=== PATIENT | male | born 1985 | race Caucasian/White ===

== ENCOUNTER 2016-06-19 21:48 | Inpatient (IN) | payer OTHER ==
[~2016-06-19] VITALS: Ht 177.8 cm; Wt 111.1 kg
--- NOTE | 2016-06-19 22:30 | NUR ---
To bed 4 a 30 yo male bibself with c/o "I cut myself with tape dispenser last sunday on this left finger, now it looks swollen." Noted left finger, knuckle and surrouding area red, swollen and patient reports pain with movement. No fever. Breathing even and unlabored. Comfort measures initiated. Awaiting for er md gaines.
--- NOTE | 2016-06-19 22:35 | NUR ---
Dr Lester at bedside.
[2016-06-19] MEDS ORDERED: VANCOMYCIN 1 GM VIAL ONE (22:43)
[2016-06-19] MEDS ORDERED: IV SET PRIMARY PUMP SET 1 EA INFUS.SET MC ONE (22:43)
[2016-06-19] MEDS ORDERED: IV D5W 250 ML IV ONE (22:43)
--- NOTE | 2016-06-19 22:50 | NUR ---
started a saline lock on the right ac g18, blood drawn and sent to lab,.
[2016-06-19] MEDS ORDERED: ACETAMINOPHEN ES 500 MG TABLET ONE (22:59)
[2016-06-19] MEDS ORDERED: ACETAMINOPHEN 325 MG TABLET PO ONE (23:00)
[2016-06-19] MEDS ORDERED: VANCOMYCIN 1 GM in IV D5W 250 ML IV ONE (23:00)
[2016-06-19 23:03] LABS: BASOPHILS % (AUTO) 0.3 % (0.0-2.0); EOSINOPHILS % (AUTO) 0.4 % (0.0-6.0); HEMATOCRIT 46 % (39-51); HEMOGLOBIN 15.7 g/dL (13.5-17.5); LYMPHOCYTES % (AUTO) 7.7 % (20.0-44.0); MEAN CORPUSCULAR HEMOGLOBIN 31 PG (26.0-33.0); MEAN CORPUSCULAR HGB CONC 35 g/dl (31.0-36.0); MEAN CORPUSCULAR VOLUME 89 fL (80-96); MONOCYTES # (AUTO) 0.7 /CMM (0.1-1.30); MONOCYTES % (AUTO) 5.6 % (2.0-12.0); NEUTROPHILS # (AUTO) 10.9 /CMM (1.8-8.9); PLATELET COUNT (AUTO) 183 /CMM (150-450); RDW COEFFICIENT OF VARIATION 13.3 (11.5-15.0); RED BLOOD CELL COUNT(AUTO) 5.15 MIL/uL (4.5-6.0); WHITE BLOOD COUNT (AUTO) 12.7 K/uL (4.3-11.0)
--- NOTE | 2016-06-19 23:03 | NUR ---
PT ASSIGNED RM 202
[2016-06-19 23:15] LABS: CALCIUM, SERUM 9.4 mg/dL (8.5-10.1); CREATININE 1.2 mg/dL (0.6-1.3); POTASSIUM 3.8 mmol/L (3.5-5.1)
--- NOTE | 2016-06-19 23:21 | NUR ---
Report given to Tressa MCINTYRE for admission agnes.
[2016-06-19 23:24] LABS: LACTIC ACID 1.1 mmol/L (0.4-2.0)
--- NOTE | 2016-06-19 23:48 | NUR ---
transported to ms room 202, no incident noted. No further complaints.
[2016-06-20] VITALS: BP 110/67
[2016-06-20] MEDS ORDERED: ACETAMINOPHEN 325 MG TABLET PO PRN (00:30)
[2016-06-20] MEDS ORDERED: ONDANSETRON HCL/PF 4 MG/2 ML VIAL IV PRN (00:30)
--- NOTE | 2016-06-20 00:30 | NUR ---
RECEIVED PATIENT FROM ER D/T CELLULITIS ON LEFT HAND. PT A/O X4. ORIENTED PATIENT TO ROOM. NO SIGNS OF DISTRESS. PT'S BREATHING UNLABORED. NO SOB NOTED. PT'S IV ON R AC 18G. PATENT AND INTACT. PT WEARING SLING ON LEFT ARM TO KEEP ARM ELEVATED. KEPT CLEAN, DRY, AND COMFORTABLE. CALL LIGHT WITHIN REACH. BED IN LOWEST POSITION AND IN LOCKED POSITION. WILL CONTINUE TO MONITOR.
[2016-06-20 00:35] VITALS: BP 110/67
--- NOTE | 2016-06-20 00:35 | NUR ---
PT HAD A 101.5 TEMPERATURE. PT ALREADY GOT TYLENOL AT EMERGENCY ROOM. GAVE 2 ICE PACKS TO PUT IN BILATERAL UNDER ARM.
--- NOTE | 2016-06-20 01:35 | NUR ---
PT'S TEMPERATURE WAS RECHECKED. WAS NOW AT 98.5 . WILL CONTINUE TO MONITOR.
[2016-06-20] MEDS ORDERED: LEVOFLOXACIN 750 MG /D5W 150ML 150 ML IV ONE (02:00)
[2016-06-20] MEDS ORDERED: SECONDARY IV SET 1 EA INFUS.SET MC ONE ×2 (02:10→09:39)
[2016-06-20] MEDS ORDERED: IV NS 0.9% 250 ML IV ONE (02:10)
[2016-06-20] MEDS ORDERED: IV SET PRIMARY PUMP SET 1 EA INFUS.SET MC ONE (02:11)
--- NOTE | 2016-06-20 02:15 | NUR ---
MS RN NOTES: PT ASLEEP IN BED WITH GIRLFRIEND AT BEDSIDE. NO SIGNS OF DISTRESS. PT'S BREATHING UNLABORED. NO SOB NOTED. PT'S IV ON R AC 18G PATENT AND INTACT. PT WEARING SLING ON LEFT ARM TO KEEP ARM ELEVATED. KEPT CLEAN, DRY, AND COMFORTABLE. CALL LIGHT WITHIN REACH. BED IN LOWEST POSITION AND IN LOCKED POSITION. WILL CONTINUE TO MONITOR.
[2016-06-20] MEDS: LEVOFLOXACIN 750 MG /D5W 150ML 750 MG in PREMIX 1 EA IV SCH (02:23)
--- NOTE | 2016-06-20 06:14 | NUR ---
MS RN CLOSING NOTES: PT ASLEEP IN BED. NO SIGNS OF DISTRESS. PT'S BREATHING UNLABORED. NO SOB NOTED. PT'S IV ON R AC 18G PATENT AND INTACT. PT WEARING SLING ON LEFT ARM TO KEEP ARM ELEVATED. KEPT CLEAN, DRY, AND COMFORTABLE. CALL LIGHT WITHIN REACH. BED IN LOWEST POSITION AND IN LOCKED POSITION. WILL ENDORSE TO DAY SHIFT NURSE.
[2016-06-20 06:52] LABS: BASOPHILS % (AUTO) 0.2 % (0.0-2.0); EOSINOPHILS % (AUTO) 0.2 % (0.0-6.0); HEMATOCRIT 42 % (39-51); HEMOGLOBIN 14.4 g/dL (13.5-17.5); LYMPHOCYTES # (AUTO) 1.5 /CMM (0.8-4.8); MEAN CORPUSCULAR HEMOGLOBIN 31 PG (26.0-33.0); MEAN CORPUSCULAR HGB CONC 34 g/dl (31.0-36.0); MEAN CORPUSCULAR VOLUME 89 fL (80-96); MONOCYTES # (AUTO) 1.3 /CMM (0.1-1.30); MONOCYTES % (AUTO) 9.6 % (2.0-12.0); NEUTROPHILS # (AUTO) 10.5 /CMM (1.8-8.9); PLATELET COUNT (AUTO) 163 /CMM (150-450); RDW COEFFICIENT OF VARIATION 12.8 (11.5-15.0); RED BLOOD CELL COUNT(AUTO) 4.73 MIL/uL (4.5-6.0); WHITE BLOOD COUNT (AUTO) 13.3 K/uL (4.3-11.0)
[2016-06-20 07:04] LABS: CALCIUM, SERUM 8.5 mg/dL (8.5-10.1); CREATININE 1.1 mg/dL (0.6-1.3); POTASSIUM 3.6 mmol/L (3.5-5.1)
[2016-06-20 08:00] VITALS: BP 135/66
--- NOTE | 2016-06-20 08:00 | NUR ---
MS2/RN OPENING NOTE PT. IS IN BED AWAKE A&OX4. NO SIGNS OF DISTRESS. PT. IS WEARING A LEFT ARM SLING. PT. IS BREATHING EVENLY, UNLABORED. PT. C/O PAIN ON A SCALE OF 5/10 DUE TO HIS LEFT HAND. PT. HAS SIGNS OF REDNESS, AND SWELLING IN AFFECTED AREA. PAIN MEDICATION WAS OFFERED, AND TYLENOL GIVEN. PT. HAS A LEFT ANTECUBITAL IV SITE WITH A RUNNING IV TO KEEP VEIN OPEN AT THIS TIME. BED IS IN LOW POSITION, 2 SIDE RAILS UP, AND CALL LIGHT WITHIN REACH.
[2016-06-20] MEDS ORDERED: FEE PK DOSING 1 MIN EA MC ONE (08:25)
[2016-06-20] MEDS: PANTOPRAZOLE 40 MG TABLET.DR PO SCH (08:36)
[2016-06-20] MEDS: VANCOMYCIN 1.5 GM in IV D5W 500 ML IV SCH ×2 (09:44→21:08)
--- NOTE | 2016-06-20 10:06 | NUR ---
WOUND CARE CONSULT: PATIENT SEEN AND SKIN ASSESSMENT DONE. PATIENT ALERT,ORIENTED, AMBULATORY, INDEPENDENT WITH BED MOBILITY, CONTINENT, JESÚS 22. SEE TODAY'S SKIN ASSESSMENT IN PCS ALONG WITH RECOMMENDATIONS DISCUSSED WITH NURSING STAFF. IN AGREEMENT WITH PLAN OF CARE. Addendum: 06/20/16 at 1007 by MASOUD MADISON WNDNU Amended: Links added.
[2016-06-20] MEDS: SILVER SULFADIAZINE CREAM 25 GM TUBE TP SCH (11:12)
--- NOTE | 2016-06-20 11:15 | NUR ---
WOUND CONSULT PERFORMED BY WOUND NURSEMASOUD. WOUND CARE WAS DONE PER ORDERS.
--- NOTE | 2016-06-20 11:51 | NUR ---
WOUND CULTURE TAKEN TOP OF LEFT INDEX FINGER PER MD ORDER. LAB WAS NOTIFIED.
[2016-06-20] MEDS: HYDROCODONE/APAP 5/325MG 1 EACH TABLET PO PRN ×3 (13:35→22:11)
[2016-06-20 16:00] VITALS: BP 118/71
--- NOTE | 2016-06-20 16:52 | NUR ---
PT. HAS LEFT ARM ELEVATED WITH 2 PILLOWS ABOVE HEART PER MD ORDER.
--- NOTE | 2016-06-20 18:20 | NUR ---
MS2/RN CLOSING NOTE PT. IS IN BED WATCHING TV, A&OX4. BREATHING UNLABORED, AND EVENLY ROOM AIR. PT.'S HAND LEFT HAND IS ELEVATED ON 2 PILLOWS. PT HAS A RIGHT ANTECUBITAL IV ACCESS SITE. PT. C/O PAIN 08/19. PAIN MEDICATION WAS OFFERED. PT.'S BED IN LOW POSITION, 2 SIDE RAILS UP, AND CALL LIGHT WITHIN REACH.
--- NOTE | 2016-06-20 18:38 | NUR ---
ORTHOPEDIC SURGEON CONSULTED WITH PT. ABOUT THE WOUND ON LEFT INDEX FINGER, NO NEW ORDERS AT THIS TIME, CONTINUE TO MONITOR. PAIN MEDICATION, NORCO WAS GIVEN FOR LEVEL OF PAIN 08/19.
--- NOTE | 2016-06-20 19:30 | NUR ---
MS RN OPENING NOTES: PATIENT IN BED, AOX4, ON ROOM AIR, BREATHING EVEN AND UNLABORED. NOTED L HAND TO BE WITH REDNESS AND SWELLING. MAINTAINED ELEVATED ON 2 PILLOWS. PIV OVER RAC G 18 INTACT AND PATENT TO FLUSH. PROVIDED FOR COMFORT AND SAFETY. WILL CONT TO MONITOR.
[2016-06-20 20:00] VITALS: BP 138/71
[2016-06-20 22:00] VITALS: BP 138/71
--- NOTE | 2016-06-20 22:10 | NUR ---
RN NOTES: PATIENT COMPLAINED OF 4/10 PAIN OVER L HAND. ADMINISTERED PRN NORCO 5-325 MG PO. WILL CONT TO MONITOR.
[2016-06-21] MEDS: LEVOFLOXACIN 750 MG /D5W 150ML 750 MG in PREMIX 1 EA IV SCH (00:32)
--- NOTE | 2016-06-21 06:47 | NUR ---
MS RN CLOSING NOTES: PATIENT IN BED, AOX4, ON ROOM AIR, BREATHING EVEN AND UNLABORED. CURRENTLY DENIES PAIN AT THIS TIME. PIV OVER RAC G18 INTACT AND PATENT TO FLUSH. DUE MEDS GIVEN. PROVIDED FOR COMFORT AND SAFETY. WILL ENDORSE TO AM RN FOR KRYSTLE.
[2016-06-21 06:51] LABS: BASOPHILS % (AUTO) 0.2 % (0.0-2.0); EOSINOPHILS # (AUTO) 0.2 /CMM (0.0-0.7); HEMATOCRIT 43 % (39-51); HEMOGLOBIN 14.9 g/dL (13.5-17.5); LYMPHOCYTES # (AUTO) 1.5 /CMM (0.8-4.8); MEAN CORPUSCULAR HEMOGLOBIN 31 PG (26.0-33.0); MEAN CORPUSCULAR HGB CONC 34 g/dl (31.0-36.0); MEAN CORPUSCULAR VOLUME 90 fL (80-96); MONOCYTES # (AUTO) 1.1 /CMM (0.1-1.30); MONOCYTES % (AUTO) 10.5 % (2.0-12.0); NEUTROPHILS # (AUTO) 7.4 /CMM (1.8-8.9); NEUTROPHILS % (AUTO) 72.3 % (43.0-81.0); PLATELET COUNT (AUTO) 165 /CMM (150-450); RDW COEFFICIENT OF VARIATION 13.3 (11.5-15.0); RED BLOOD CELL COUNT(AUTO) 4.82 MIL/uL (4.5-6.0); WHITE BLOOD COUNT (AUTO) 10.2 K/uL (4.3-11.0)
[2016-06-21 07:19] LABS: CALCIUM, SERUM 8.1 mg/dL (8.5-10.1); CREATININE 0.9 mg/dL (0.6-1.3); MAGNESIUM 2.1 mg/dL (1.8-2.4); POTASSIUM 3.9 mmol/L (3.5-5.1)
--- NOTE | 2016-06-21 07:30 | NUR ---
MS/RN Patient received Patient received from night nurse. A/O X4, pain stated to be 5/10 when moving fingers on left hand. Latonia to be administered. Swelling noted to be slightly less than yesterday as marked. Reminded to keep arm/hand elevated on pillows. New heplock inserted into right wrist 20g as previous one bleeding. Call light within reach, mother at bedside updated with plan of care. Will continue to monitor.
[2016-06-21] MEDS: PANTOPRAZOLE 40 MG TABLET.DR PO SCH (07:59)
[2016-06-21 08:00] VITALS: BP 109/68
[2016-06-21] MEDS: HYDROCODONE/APAP 5/325MG 1 EACH TABLET PO PRN ×2 (08:00→17:25)
--- NOTE | 2016-06-21 08:54 | NUR ---
MS/FRANCISCO JAVIER Alexander level 5, will administer dose as ordered.
[2016-06-21] MEDS: VANCOMYCIN 1.5 GM in IV D5W 500 ML IV SCH (09:06)
--- NOTE | 2016-06-21 09:30 | NUR ---
MS/RN Medical record Patient is requesting to be given access to electronic medical record. Erin from IT called, will come to see patient and arrange access.
--- NOTE | 2016-06-21 11:00 | NUR ---
MS/RN EMR Patient given access to be able to view EMR by Erin.
--- NOTE | 2016-06-21 12:26 | NUR ---
MS/RN Vancomycin Vancomycin dose changed by pharmacy to 1.25mg every eight hours, next dose to be administered at 1700. Trough to be drawn at 1600 on 06/22.
[2016-06-21 16:00] VITALS: BP 140/79
--- NOTE | 2016-06-21 16:30 | NUR ---
MS/RN Dressing change Dressing to left hand changed. -cleanse with normal saline -pat dry -apply silvadene -cover with bandaid
[2016-06-21] MEDS: VANCOMYCIN 1.25 GM in IV D5W 500 ML IV SCH (16:52)
--- NOTE | 2016-06-21 17:00 | NUR ---
MS/RN Vancomycin 1.25gm vancomycin hung as ordered.
[2016-06-21] MEDS: SILVER SULFADIAZINE CREAM 25 GM TUBE TP SCH (17:25)
--- NOTE | 2016-06-21 18:07 | NUR ---
MS/RN End note Received call from Dr Schroeder - per insurance, patient will be transferred to contracted facility. At this time, unsure as to where and when. Order entered into computer that okay to transfer to med/surg per MD. Exit care completed, just needed to be printed out and signed by patient. Copy of chart made. Will endorse to cnc machinist 2nd shift.
--- NOTE | 2016-06-21 19:30 | NUR ---
MS RN OPENING NOTES: PATIENT IN BED, AOX4, ON ROOM AIR, BREAHTING EVEN AND UNLABORED. IN NO APPARENT DISTRESS. STATES THAT HE ONLY FEELS PAIN SCALED AT 2/10 OVER L HAND WHENEVER HE BRINGS IT DOWN TO A DEPENDENT POSITION. L HAND NOTED TO BE RED AND WITH SOME SWELLING, WARM TO TOUCH, BUT AREA OF SWELLING HAS DECREASED AND DOES NOT EXTEND PAST THE BORDER DRAWN PREVIOUSLY. PIV ACCESS OVER R WRIST G 20 INTACT AND PATENT TO FLUSH. PROVIDED FOR COMFORT AND SAFETY. WILL CONT TO MONITOR.
--- NOTE | 2016-06-21 19:55 | NUR ---
RN NOTES: RECEIVED CALL FROM LUCA OF [facility], THE PATIENT'S MEDICAL GROUP, AND STATED THAT THERE IS AN AVAILABLE BED FOR PATIENT AT [facility] ( MED SURG RM 1438 BED 2), AND GAVE NUMBER FOR REPORT: [id number]. EXPLAINED TO LUCA THAT PATIENT HAS INITIALLY DECLINED ANY PLAN TO TRANSFER FOR [facility], AND MADE IT KNOWN EARLIER WITH THE CNC MECHANIC. PER LUCA, THERE IS A POSSIBILITY THAT PATIENT WILL HAVE TO BE RESPONSIBLE FOR THE HOSPITAL STAY HERE AT [facility] FROM THIS POINT ONWARD IF HE DECIDES TO STAY HERE. PLACED CALLER ON HOLD AND EXPLAINED TO PATIENT AND MOTHER WHO IS AT BEDSIDE. PATIENT VERBALIZED HE DOES NOT WANT TO BE TRANSFERRED, AND PREFERS TO STAY HERE FOR ANOTHER NIGHT. PATIENT'S MOTHER ASKED TO SPEAK TO LUCA MARTINEZ [facility], AND THUS EXPLAINED THAT THEY ALREADY HAVE A WORKERS' COMPENSATION CLAIM FILED FOR PT'S HOSPITALIZATION, AND THAT PATIENT REFUSES TO BE TRANSFERRED AT THIS TIME. PER LUCA MARTINEZ [facility], SHE WILL CALL BACK TO CLARIFY, SHE WAS NOT AWARE OF THE WORKERS' COMP CLAIM BEING FILED.
[2016-06-21 20:00] VITALS: BP 131/69
[2016-06-21] MEDS: LEVOFLOXACIN (750 MG) 750 MG TABLET PO SCH (21:21)
[2016-06-21 22:00] VITALS: BP 131/69
[2016-06-22] MEDS: VANCOMYCIN 1.25 GM in IV D5W 500 ML IV SCH ×3 (00:16→16:36)
--- NOTE | 2016-06-22 00:20 | NUR ---
RN NO ELIECER: PATIENT STATES THAT HE FEELS SLIGHTLY NAUSEOUS, BUT STATED THAT VOMITING IS UNLIKELY. EXPLAINED TO PATIENT THAT ANTIEMETIC CAN BE GIVEN, HOWEVER, PATIENT DECLINE. GAVE CRACKERS TO PATIENT. WILL CONT TO MONITOR.
[2016-06-22 06:47] LABS: BASOPHILS % (AUTO) 0.1 % (0.0-2.0); EOSINOPHILS # (AUTO) 0.3 /CMM (0.0-0.7); EOSINOPHILS % (AUTO) 3.6 % (0.0-6.0); HEMATOCRIT 45 % (39-51); HEMOGLOBIN 15.7 g/dL (13.5-17.5); LYMPHOCYTES # (AUTO) 1.9 /CMM (0.8-4.8); LYMPHOCYTES % (AUTO) 26.4 % (20.0-44.0); MEAN CORPUSCULAR HEMOGLOBIN 31 PG (26.0-33.0); MEAN CORPUSCULAR HGB CONC 35 g/dl (31.0-36.0); MEAN CORPUSCULAR VOLUME 89 fL (80-96); MONOCYTES # (AUTO) 0.4 /CMM (0.1-1.30); NEUTROPHILS # (AUTO) 4.6 /CMM (1.8-8.9); NEUTROPHILS % (AUTO) 63.9 % (43.0-81.0); PLATELET COUNT (AUTO) 174 /CMM (150-450); RDW COEFFICIENT OF VARIATION 13.1 (11.5-15.0); RED BLOOD CELL COUNT(AUTO) 5.07 MIL/uL (4.5-6.0); WHITE BLOOD COUNT (AUTO) 7.3 K/uL (4.3-11.0)
--- NOTE | 2016-06-22 06:51 | NUR ---
MS RN CLOSING NOTES: PATIENT IN BED, AOX4, ON ROOM AIR, BREATHING EVEN AND UNLABORED. DENIES ANY PAIN OVER LEFT HAND PAIN AT THIS TIME. DUE MEDS GIVEN. L HAND MAINTAINED ELEVATED ON 2 PILLOWS. PROVIDED FOR COMFORT AND SAFETY. WILL ENDORSE TO AM RN FOR KRYSTLE.
[2016-06-22 06:57] LABS: CALCIUM, SERUM 8.8 mg/dL (8.5-10.1); CREATININE 0.8 mg/dL (0.6-1.3); MAGNESIUM 2.3 mg/dL (1.8-2.4); POTASSIUM 4.6 mmol/L (3.5-5.1)
--- NOTE | 2016-06-22 07:30 | NUR ---
MS/RN Patient received Patient received from mine shifter. Cellulitis on left hand appears to be improving, redness noted to be well within black marker that was placed upon admission. Reminded to keep left arm elevated on pillows. Denies pain at this time. Family at bedside and updated to plan of care. Call light within reach, will continue to monitor and ensure safety.
[2016-06-22 08:13] VITALS: BP 113/67
[2016-06-22] MEDS: PANTOPRAZOLE 40 MG TABLET.DR PO SCH (08:32)
[2016-06-22] MEDS: SILVER SULFADIAZINE CREAM 25 GM TUBE TP SCH (08:32)
[2016-06-22] MEDS: ACIDOPHILUS/BULGARICUS 1 EACH TAB.CHEW PO SCH ×3 (08:32→16:35)
--- NOTE | 2016-06-22 08:43 | NUR ---
MS/RN Vancomycin Vancomycin administered as ordered.
[2016-06-22] MEDS ORDERED: LACTOBACILLUS RHAMNOSUS GG 1 EACH CAP.SPRINK PO SCH (09:00)
--- NOTE | 2016-06-22 12:48 | NUR ---
MS/RN Rounds Left hand remains elevated on pillows. No complaints of pain at this time, will continue to monitor.
[2016-06-22 16:03] VITALS: BP 101/61
--- NOTE | 2016-06-22 18:07 | NUR ---
MS/RN S/B Dr Hand Seen by Dr Hand - recommended patient to stay in the hospital until tomorrow to receive two additional dosages of vancomycin. Patient requesting to go home. Per ID, will ask case reviewer if medication can be covered under insurence for home. If not, patient in agreement that he will stay one more night and then received tomorrow's vanco one hour early at 0800 and be discharged home with prescription for bactrim.
[2016-06-22 20:00] VITALS: BP 130/66
--- NOTE | 2016-06-22 20:00 | NUR ---
PATIENT IN BED, ALERT AND ORIENTED X4, CALM, NO SOB, NO RESPIRATORY DISTRESS, DENIES ANY PAIN AT THIS TIME. HEPLOCK TO RIGHT WRIST IS PATENT AND INTACT. NEEDS ATTENDED, KEPT SAFE AND COMFORTABLE, CALL LIGHT WITHIN REACH.
[2016-06-22] MEDS: LEVOFLOXACIN (750 MG) 750 MG TABLET PO SCH (21:22)
[2016-06-23] MEDS: VANCOMYCIN 1.5 GM in IV D5W 500 ML IV SCH ×2 (00:48→07:23)
--- NOTE | 2016-06-23 03:01 | NUR ---
VANCOMYCIN IVP GIVEN, REMINDED PATIENT TO ELEVATE LEFT HAND TILL FULLY RECOVERED. PATIENT REPORTED REGAINING RANGE OF MOTION TO LEFT INDEX FINGER, NOTED SLIGHT REDNESS, SWELLING SUBSIDED.
--- NOTE | 2016-06-23 06:34 | NUR ---
PATIENT IS AWAKE AND ALERT, IN GOOD AND STABLE CONDITION, NO COMPLAIN OF PAIN, NO SOB, NO DISTRESS, COMPLIANT WITH IV ABX FOR LEFT INDEX FINGER CELLULITIS. NO ADVERSE SIDE EFFECTS NOTED TO VANCOMYCIN. PATIENT WILL BE DISCHARGE AFTER LAST DOSE OF VANCOMYCIN IN GIVEN IN AM.
[2016-06-23 06:38] LABS: CALCIUM, SERUM 8.6 mg/dL (8.5-10.1); CREATININE 0.9 mg/dL (0.6-1.3); POTASSIUM 4.1 mmol/L (3.5-5.1)
--- NOTE | 2016-06-23 07:25 | NUR ---
RN NOTES PATIENT RECEIVED AWAKE ALERT X1, NONVERBAL, RESPIRATIONS EVEN AND UNLABORED, IN NO APPARENT PAIN OR DISCOMFORT. DRESSING TO LEFT FOOT CDI. IV SITE PATENT AND INTACT, NO REDNESS OR INFILTRATION. KEPT CLEAN DRY AND COMFORTABLE, CALL LIGHT WITHIN EASY REACH, WILL CONTINUE TO MONITOR. Addendum: 06/23/16 at 0811 by MERON RIVERA RN RN NOTES INCORRECT ENTRY
--- NOTE | 2016-06-23 07:30 | NUR ---
RN NOTE; PT AWAKE ALERT AND VERBALLY RESPONSIVE.RESPIRATIONS EVEN AND UNLABORED, NO C/O PAIN OR DISCOMFORT AT THIS TIME. ON ONGOING IVF AND IV ATB MACKENZIE WELL.IV PATENT AND INTACT NO REDNESS OR INFILTRATION, NEEDS ATTENDED. BED LOW LOCKED. SRX2. CALL LIGHT WITHIN REACH. WILL CONT TO MONITOR
--- NOTE | 2016-06-23 07:30 | NUR ---
VANCOMYCIN IVP SCHEDULED FOR 0900, GIVEN AT 0720 PER PATIENT'S REQUEST. PATIENT WILL BE DISCHARGED TO HOME AFTER VANCOMYCIN INFUSION. MOTHER AT THE BEDSIDE.
[2016-06-23 08:00] VITALS: BP 108/67
[2016-06-23] MEDS: ACIDOPHILUS/BULGARICUS 1 EACH TAB.CHEW PO SCH (08:35)
[2016-06-23] MEDS: PANTOPRAZOLE 40 MG TABLET.DR PO SCH (08:35)
[2016-06-23] MEDS: SILVER SULFADIAZINE CREAM 25 GM TUBE TP SCH (08:39)
--- NOTE | 2016-06-23 10:15 | NUR ---
RN NOTE; PT AWAKE ALERT AND VERBALLY RESPONSIVE.RESPIRATIONS EVEN AND UNLABORED, NO C/O PAIN OR DISCOMFORT AT THIS TIME.IV ATB COMPLETE, IV ACCESS AND ID BAND REMOVED WITH NO ASE NOTED. PATIENT SEEN BY DR RADFORD, WITH ORDERS FOR DISCHARGE, ALL DISCHARGE INSTRUCTIONS REVIEWED WITH PT AND MOTHER PRESCRIPTIONS TAKEN BY MOTHER WITH NOTED VERBAL UNDERSTANDING. PICTURES IN CHART WITHIN 24HOURS, PATIENT ASSISTED TO LOBBY BY HEAD RESIDENT, DISCHARGED IN STABLE CONDITION
== END 2016-06-23 10:15 | disposition home or self-care (01) | DRG 872 ==
LOC: ER 21:50 → MEDSG2 23:27
PROVIDERS: ADMIT Legal Medicine; ATTEND Legal Medicine
DX: A41.9 Sepsis, unspecified organism (principal); L03.114 Cellulitis of left upper limb; M65.9 Synovitis and tenosynovitis, unspecified; S61.211A Laceration without foreign body of left index finger without damage to nail, initial encounter; W45.8XXA Other foreign body or object entering through skin, initial encounter; Y92.9 Unspecified place or not applicable
CPT/HCPCS: 36415; 73130-TC; 80048-TC; 80202-TC; 83605-TC; 83735-TC; 85025-TC; 87040-TC; 87070-TC; 87081-TC; A4216; A4606; J1956; J3370; J7050; J7060; Z7610